=== PATIENT | male | born 1940 | race Caucasian/White ===

== ENCOUNTER 2016-10-10 16:01 | Inpatient (IN) | payer OTHER ==
[2016-10-10] MEDS ORDERED: SOLU-MEDROL IV ONE (17:28)
[2016-10-10] MEDS ORDERED: ZOFRAN IV PRN (17:28)
[2016-10-10] MEDS ORDERED: TYLENOL PO PRN (17:28)
[2016-10-10 18:13] LABS: ALLEN TEST YES; BE -7.3 mmoll (-3.0-3.0); BLOOD TYPE ARTERIAL; DRAW SITE R RADIAL; METHB 1.5 % (0.0-1.5); O2(CT) 16.3 mL/dL (15.0-23.0); PCO2(98.6) 35 mmHg (35-45); PO2(98.6) 72 mmHg (60-100); SAMPLE BLOOD; SAO2 97.1 % (95.0-100.0); THB 12.4 g/dL (11.5-17.4); pH(98.6) 7.32 (7.35-7.45)
[2016-10-10 18:16] LABS: MODALITY ROOM AIR
[2016-10-10] MEDS: NS 1,000 ML IV SCH (18:37)
[2016-10-10] MEDS: LOVENOX SUBQ SCH (18:38)
[2016-10-10] MEDS: LEVAQUIN 750 MG/D5W 150 ML IV SCH (18:38)
[2016-10-10] MEDS ORDERED: BROVANA NEB ONE (18:42)
[2016-10-10 18:46] LABS: MANUAL DIFF NEEDED? NO
[2016-10-10 18:49] LABS: BASO% 0.1 % (0.0-0.8); EOS# 0.06 X1000 (0.0-0.7); EOS% 0.6 % (0.0-10.0); HEMATOCRIT 36.2 % (42.0-52.0); HEMOGLOBIN 12.3 g/dL (14.0-18.0); IMM GRAN# 0.08 X1000 (0.0-0.04); IMM GRAN% 0.8 % (0.0-0.5); LYMPH# 2.24 X1000 (1.2-3.4); LYMPH% 21.2 % (20.5-51.1); MCH 30.9 PG (27-31); MONO# 1.05 X1000 (0.11-0.59); MPV 9.8 FL (7.4-10.4); NEUT% 67.3 % (42.2-75.2); PLT 283 X1000 (130-400); RBC 3.98 XMIL (4.7-6.1)
[2016-10-10 19:07] LABS: CALCIUM 9.1 mg/dL (8.8-10.2); POTASSIUM 4.1 mmol/L (3.5-5.1)
[2016-10-10] MEDS ORDERED: LANTUS SUBQ SCH (21:00)
[2016-10-10] MEDS: ASMANEX 220 MICROGM INHALER INH SCH (21:04)
[2016-10-10] MEDS: ATROVENT NEB INH SCH (21:05)
[2016-10-10] MEDS: BROVANA NEB INH SCH (21:06)
[2016-10-10] MEDS: ACCOLATE PO SCH (21:50)
[2016-10-10] MEDS: HUMULIN R SUBQ SCH (21:51)
[2016-10-10] MEDS: LIPITOR PO SCH (21:51)
[2016-10-10] MEDS: FLOMAX PO SCH (21:51)
[2016-10-10] MEDS: DESYREL PO PRN (21:51)
[2016-10-10] MEDS: XANAX PO SCH (21:51)
[2016-10-10] MEDS ORDERED: INSULIN PEN NEEDLES ONE (21:57)
[2016-10-11] MEDS ORDERED: SOLU-MEDROL IV SCH
[2016-10-11] MEDS: HUMULIN R SUBQ SCH ×5 (01:27→21:07)
[2016-10-11] MEDS: ATROVENT NEB INH SCH ×5 (03:00→21:08)
[2016-10-11] MEDS: PROTONIX PO SCH (06:16)
--- NOTE | 2016-10-11 07:45 | Diag Imaging Result Document ---
PROCEDURE NAME: CHEST-PORTABLE - 10/10/2016 SINGLE FRONTAL RADIOGRAPH OF THE CHEST: COMPARISON: 03/17/2016. FINDINGS: There is evidence of prior granulomatous disease, stable. There is mild chronic interstitial thickening at the lung bases that is stable. There is a prominent pericardial fat pad. The lungs are grossly clear, otherwise. No definite pleural fluid collection is identified. Cardiac silhouette is stable. IMPRESSION: Suggestion of mild chronic interstitial thickening at the lung bases. No definite acute pathology.
[2016-10-11] MEDS: BROVANA NEB INH SCH ×2 (07:50→20:12)
[2016-10-11] MEDS: ASMANEX 220 MICROGM INHALER INH SCH ×2 (07:51→20:11)
[2016-10-11] MEDS: ACCOLATE PO SCH ×2 (08:30→21:07)
[2016-10-11] MEDS: XANAX PO SCH ×2 (08:30→21:07)
[2016-10-11] MEDS: LANTUS SUBQ SCH ×2 (08:30→21:07)
[2016-10-11] MEDS: PLAVIX PO SCH (08:30)
[2016-10-11] MEDS: SOLU-MEDROL IV SCH ×3 (08:30→21:06)
[2016-10-11] MEDS: CELEXA PO SCH (08:30)
[2016-10-11] MEDS: HUMALOG SUBQ SCH ×3 (08:31→15:59)
[2016-10-11] MEDS: NS 1,000 ML IV SCH (08:31)
--- NOTE | 2016-10-11 09:00 | PROGRESS NOTE ---
DATE: 10/11/2016 SUBJECTIVE: Mr. Martell was admitted to [facility] with an acute COPD exacerbation with tracheobronchitis. His initial chest x-ray demonstrated chronic COPD type changes. No infiltrates or pleural effusions were noted. We initially placed him on supplemental O2, ipratropium nebulizer treatments, IV Solu-Medrol, and intravenous antibiotics including Levaquin. Clinically he reports that he is breathing more comfortably this morning. He still has wheezing throughout all lung killian but he is moving air better as compared to admission. He is maintaining O2 saturations of 92 to 96% on 2 L of O2. He continues with a cough productive of yellowish sputum as well as pleuritic chest pain. He does have a history of type 2 insulin- dependent diabetes mellitus. His blood sugars are fluctuating. He is on intravenous steroids. His sugars are ranging from 257-370. Cardiac enzymes are negative. OBJECTIVE: Vital signs: Temperature 98.2 degrees, pulse 81, respirations 24, BP 124/50. General: This is a chronically ill-appearing, 76-year-old gentleman in no significant distress. CV: Regular rate and rhythm. Lungs: He has end-expiratory wheezing with forced expiration in all lung killian. Aeration of the lungs has improved. Abdomen: Soft, nontender, with active bowel sounds. Extremities: Without edema. ASSESSMENT AND PLAN: 1. Acute chronic obstructive pulmonary disease exacerbation with tracheobronchitis. Clinically he is better this morning. We will continue supplemental O2, Brovana nebulized b.i.d., ipratropium nebulizer q.6 hours, taper the IV Solu-Medrol, and continue broad-spectrum antibiotics including Levaquin 750 mg daily. I will recheck a PA and lateral chest x-ray in the morning. 2. Type 2 insulin-dependent diabetes mellitus. Blood sugars are too high. I am going to increase the Lantus to 50 units subcutaneously daily. We will continue an 1800 calorie ADA diet, pattern sugars, and a Humulin R sliding scale.
--- NOTE | 2016-10-11 10:39 | HISTORY AND PHYSICAL ---
CHIEF COMPLAINT: Shortness of breath. HISTORY OF PRESENT ILLNESS: Mr. Zackery Martell is a 76-year-old, gentleman who is well known to me. 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 He presented to my office with a 2-week history of increasing shortness of breath, increasing work of breathing, cough productive of yellowish-green sputum, pleuritic chest pain worse with deep inspiration and paroxysms of cough, low-grade fever and chills. His chest x-ray showed chronic COPD-type changes but no obvious infiltrates or effusions. He denied any PND, orthopnea or increasing peripheral edema. PAST MEDICAL HISTORY: As above. PAST SURGICAL HISTORY: Appendectomy, umbilical hernia repair. Revision of bilateral ileo- ureters. ALLERGIES: No known drug allergies. MEDICATIONS: Xanax 0.25 mg b.i.d., atorvastatin 40 mg at bedtime, Celebrex 100 mg b.i.d., Celexa 20 mg daily. Clopidogrel 75 mg daily, Humalog 35 units subcu t.i.d. with meals, Lantus 40 units subcu daily, Symbicort 160/4.5, two puffs b.i.d., Brovana nebulizer b.i.d., ipratropium nebulized t.i.d., Flomax 0.4 mg daily. Toprol-XL 25 mg b.i.d. FAMILY HISTORY: Father had prostate cancer. Mother had diabetes. SOCIAL HISTORY: He is a former smoker. He does not consume alcoholic beverages. He lives with his spouse. He had a Pneumovax on 09/26/2008 and is vaccinated for life. REVIEW OF SYSTEMS: General: He denies any recent weight gain or weight loss. HEENT: He wears glasses. He is hard of hearing. CV: No chest pain, palpitations, or anginal equivalents. Pulmonary: See HPI. GI: No reflux, dysphagia, melena, hematochezia, change in bowel habits, or rectal bleeding. Endocrine: No polyuria, no polydipsia. No cold or heat intolerance. Skin: No easy bruisability. : No leakage of urine with coughing or laughing. Skin: No easy bruisability. Neurologic: He has decreased light touch in the distal extremities bilaterally. PHYSICAL EXAMINATION: GENERAL: This is a chronically ill-appearing, 76-year-old gentleman in mild distress secondary to shortness of breath. VITAL SIGNS: Blood pressure 97/49 sitting, 82/45 standing. Pulse 79. Height 68 inches, weight 200 pounds. BMI 30.4. O2 saturation 95%. HEENT: Fundi with arteriolar wall thickening. Pupils equal, round, reactive to light. Extraocular eye movements intact. TMs without bullae. NECK: Supple. No masses, JVD or bruits. CV: Regular rate and rhythm. LUNGS: Diffuse end-expiratory wheezing with forced expiration. There is poor air movement. ABDOMEN: Soft, nontender, with active bowel sounds. No hepatosplenomegaly. No abdominal bruits. EXTREMITIES: Without edema. SKIN: No palpable purpura. EXTREMITIES: Without edema. AND RECTAL EXAMS: Deferred. NEURO: He has decreased light touch in the distal extremities bilaterally. ASSESSMENT AND PLAN: 1. Acute chronic obstructive pulmonary disease exacerbation with tracheobronchitis. I am going to admit him to [facility]. We will begin supplemental O2, Brovana nebulized b.i.d., ipratropium nebulized t.i.d., Levaquin 750 mg IV daily and IV Solu-Medrol. 2. Hypertension. His blood pressure is a little bit low. I am going to hold the Toprol and cautiously give him fluids. 3. Type 2 insulin-dependent diabetes mellitus. We will place him on patterned sugars, Humulin R sliding scale, and continue his regular dosage of Lantus and Humalog. I suspect that we may have to adjust the Lantus because he is on IV steroids. Given his clinical presentation and comorbid condition, I anticipate that he will be in the hospital for at least [address] I will therefore place him in inpatient status. Given the increasing shortness of breath, increased work of breathing, I believe the hospitalization is necessary. We will begin Lovenox 40 mg subcutaneously daily as DVT prophylaxis.
[2016-10-11] MEDS: LEVAQUIN 750 MG/D5W 150 ML IV SCH (16:43)
[2016-10-11] MEDS: LOVENOX SUBQ SCH (16:43)
[2016-10-11] MEDS: FLOMAX PO SCH (21:06)
[2016-10-11] MEDS: LIPITOR PO SCH (21:06)
[2016-10-11] MEDS: DESYREL PO PRN (21:07)
[2016-10-12] MEDS: ATROVENT NEB INH SCH ×4 (03:06→19:49)
[2016-10-12] MEDS: SOLU-MEDROL IV SCH ×3 (03:08→14:30)
[2016-10-12] MEDS: NS 1,000 ML IV SCH ×2 (03:09→12:05)
[2016-10-12] MEDS: HUMULIN R SUBQ SCH ×5 (06:40→20:19)
[2016-10-12] MEDS: PROTONIX PO SCH (06:40)
[2016-10-12] MEDS: HUMALOG SUBQ SCH ×3 (08:05→17:16)
[2016-10-12] MEDS: PLAVIX PO SCH (08:06)
[2016-10-12] MEDS: XANAX PO SCH ×2 (08:06→20:19)
[2016-10-12] MEDS: CELEXA PO SCH (08:06)
[2016-10-12] MEDS: ACCOLATE PO SCH ×2 (08:06→20:19)
[2016-10-12] MEDS: BROVANA NEB INH SCH ×2 (11:30→19:49)
[2016-10-12] MEDS: ASMANEX 220 MICROGM INHALER INH SCH ×2 (11:32→19:49)
--- NOTE | 2016-10-12 13:14 | Diag Imaging Result Document ---
PROCEDURE NAME: CHEST-2 VIEWS - 10/12/2016 TWO VIEWS OF THE CHEST: FINDINGS: There is emphysematous change in the upper lung zones. There is a prominent fat pad over the left heart border. There are calcified nodes in the subcarina. There is atelectasis in the right costophrenic angle region, which was not present on the previous study of 10/10/2016. IMPRESSION: 1. Left basilar atelectasis. 2. COPD.
[2016-10-12] MEDS: LEVAQUIN 750 MG/D5W 150 ML IV SCH (17:16)
[2016-10-12] MEDS: LOVENOX SUBQ SCH (17:17)
[2016-10-12] MEDS: LANTUS SUBQ SCH (20:19)
[2016-10-12] MEDS: LIPITOR PO SCH (20:19)
[2016-10-12] MEDS: FLOMAX PO SCH (20:19)
[2016-10-12] MEDS: DESYREL PO PRN (20:19)
[2016-10-13] MEDS: SOLU-MEDROL IV SCH ×3 (02:50→15:26)
[2016-10-13] MEDS: NS 1,000 ML IV SCH (03:12)
[2016-10-13] MEDS: ATROVENT NEB INH SCH ×4 (03:30→20:10)
[2016-10-13] MEDS: HUMULIN R SUBQ SCH ×4 (06:40→21:35)
[2016-10-13] MEDS: PROTONIX PO SCH (06:40)
[2016-10-13] MEDS: ACCOLATE PO SCH ×2 (08:10→20:01)
[2016-10-13] MEDS: CELEXA PO SCH (08:10)
[2016-10-13] MEDS: HUMALOG SUBQ SCH ×3 (08:10→17:18)
[2016-10-13] MEDS: PLAVIX PO SCH (08:10)
[2016-10-13] MEDS: XANAX PO SCH ×2 (08:10→20:00)
[2016-10-13 09:00] LABS: HEMATOCRIT 33.2 % (42.0-52.0); HEMOGLOBIN 10.9 g/dL (14.0-18.0); MCH 31.1 PG (27-31); MCHC 32.8 g/dL (33-37); MCV 94.6 FL (81-99); MPV 10.2 FL (7.4-10.4); RBC 3.51 XMIL (4.7-6.1)
[2016-10-13] MEDS: ASMANEX 220 MICROGM INHALER INH SCH ×2 (09:19→19:50)
[2016-10-13] MEDS: BROVANA NEB INH SCH ×2 (09:19→20:10)
[2016-10-13 09:41] LABS: CALCIUM 9.1 mg/dL (8.8-10.2); POTASSIUM 5.1 mmol/L (3.5-5.1)
--- NOTE | 2016-10-13 09:59 | PROGRESS NOTE ---
DATE: 10/13/2016 SUBJECTIVE: Mr. Martell was admitted to [facility] with an acute COPD exacerbation. His chest x-ray demonstrated diffuse emphysematous changes. No infiltrates or pleural effusions were noted. He continues to improve clinically. He is maintaining O2 saturations of 97-98% on 2 L of O2. He continues with a persistent nonproductive cough but has no further pleuritic chest pain. He denies any PND, orthopnea, or increasing peripheral edema. Blood sugars are trending down. His most recent blood sugars were 146 and 198. We have been tapering the steroids. PHYSICAL EXAMINATION: Vital Signs: Temperature 98.1 degrees, pulse 88, respirations 20, BP 132/60. CV: Regular rate and rhythm. Lungs: Distant breath sounds with increased period of expiration. Abdomen: Soft and nontender, with active bowel sounds. ASSESSMENT AND PLAN: 1. Acute chronic obstructive pulmonary disease exacerbation. Clinically, he continues to improve. I am going to check a room air oxygen saturation to see if he will require home oxygen. We will continue Brovana nebulized twice a day, ipratropium nebulized three times a day, and I will switch him to oral steroids. We will check a CBC and a BMP today. 2. Type 2 insulin-dependent diabetes mellitus. We will continue an 1800 calorie, [employer] diet, pattern sugars, Humulin R sliding scale, Lantus and Humalog.
--- NOTE | 2016-10-13 11:28 | Diag Imaging Result Document ---
PROCEDURE NAME: CHEST-2 VIEWS - 10/13/2016 TWO VIEWS OF THE CHEST: FINDINGS: There is a prominent epicardial fat pad on the left. There may be COPD. The appearance of the chest has not changed significantly since 10/12/2016. IMPRESSION: Stable chest.
[2016-10-13] MEDS: LEVAQUIN 750 MG/D5W 150 ML IV SCH (17:18)
[2016-10-13] MEDS: LOVENOX SUBQ SCH (17:19)
[2016-10-13] MEDS ORDERED: INSULIN PEN NEEDLES ONE (19:57)
[2016-10-13] MEDS: LIPITOR PO SCH (20:00)
[2016-10-13] MEDS: FLOMAX PO SCH (20:00)
[2016-10-13] MEDS: LANTUS SUBQ SCH (20:00)
[2016-10-13] MEDS: DESYREL PO PRN (20:03)
[2016-10-14] MEDS: SOLU-MEDROL IV SCH (01:15)
[2016-10-14] MEDS: ATROVENT NEB INH SCH (03:05)
[2016-10-14] MEDS: HUMULIN R SUBQ SCH (05:59)
[2016-10-14] MEDS: PROTONIX PO SCH (06:00)
[2016-10-14 07:30] VITALS: BP 109/53
[2016-10-14] MEDS: PLAVIX PO SCH (08:22)
[2016-10-14] MEDS: HUMALOG SUBQ SCH (08:22)
[2016-10-14] MEDS: ACCOLATE PO SCH (08:22)
[2016-10-14] MEDS: CELEXA PO SCH (08:22)
[2016-10-14] MEDS: XANAX PO SCH (08:22)
[2016-10-14] MEDS ORDERED: SYMBICORT 160/4.5 MICROGM INHALER INH SCH (19:30)
--- NOTE | 2016-11-10 15:12 | DISCHARGE SUMMARY ---
ADMISSION DATE: 10/10/2016 DISCHARGE DATE: 10/14/2016 DISCHARGE DIAGNOSES: 1. Acute chronic obstructive pulmonary disease exacerbation with tracheal bronchitis. 2. Type 2 insulin dependent diabetes mellitus. 3. Ischemic heart disease. 4. Chronic congestive heart failure secondary to systolic dysfunction with an EF of 45%. 5. Gastroesophageal reflux disease. 6. Mixed hyperlipidemia. 7. Depression. DISCHARGE INSTRUCTIONS: 1. Return to clinic in 1 week to see me Dr. Vamsi Mccall in anticipation of transition of care visit. 2. Activity as tolerated. 3. 1800 calorie ADA diet. MEDICATIONS: Brovana nebulized b.i.d. Symbicort 160/4.5 2 puffs b.i.d., Lantus 50 units subcutaneously daily. Ipratropium 0.5 mg nebulized q.6 hours. Trazodone 50 mg q.8 hours p.r.n. insomnia. Atorvastatin 40 mg at bedtime. Alprazolam 0.5 mg b.i.d., Celexa 20 mg daily, Plavix 75 mg daily. Humalog 25 units plus sliding scale t.i.d. with meals. Pantoprazole 40 mg daily. Flomax 0.4 mg daily. Accolate 20 mg b.i.d. HISTORY: Mr. Zackery Martell was admitted to [facility] with an acute chronic obstructive pulmonary disease exacerbation complicated by tracheobronchitis. His initial chest x- ray demonstrated chronic COPD type changes without obvious infiltrates. The patient was treated with supplemental O2. IV Solu-Medrol broad-spectrum antibiotics and we added Brovana to his regimen of ipratropium. We also added Symbicort 160/4.5 2 puffs b.i.d. as part of his maintenance regimen. Over the course of the next several days, he made slow but steady progress. We were gradually able to wean him off O2 and wean him off IV steroids without regression of his symptoms. He will continue Brovana nebulized b.i.d., ipratropium nebulized q.6 hours and Symbicort. He does have a longstanding history of type 2 insulin-dependent diabetes mellitus while on steroids. Sugars did fluctuate. We increased the Lantus to 50 units subcutaneously daily with stabilization of his sugars. Having reached maximum hospital benefit, the patient will be discharged in stable condition.
== END 2016-10-14 10:40 | disposition home or self-care (01) | DRG 191 ==
LOC: P.DIRADM 16:01 → DIRADM 16:45 → 3S 17:15
PROVIDERS: ADMIT Internal Medicine; ATTEND Internal Medicine
DX: J44.1 Chronic obstructive pulmonary disease with (acute) exacerbation (principal); I50.22 Chronic systolic (congestive) heart failure; I11.0 Hypertensive heart disease with heart failure; E11.42 Type 2 diabetes mellitus with diabetic polyneuropathy; I25.9 Chronic ischemic heart disease, unspecified; E78.2 Mixed hyperlipidemia; K21.9 Gastro-esophageal reflux disease without esophagitis; M19.90 Unspecified osteoarthritis, unspecified site; F32.9 Major depressive disorder, single episode, unspecified; Z79.899 Other long term (current) drug therapy; Z79.1 Long term (current) use of non-steroidal anti-inflammatories (NSAID); Z79.4 Long term (current) use of insulin; Z87.891 Personal history of nicotine dependence; Z83.3 Family history of diabetes mellitus; Z80.42 Family history of malignant neoplasm of prostate; Z79.02 Long term (current) use of antithrombotics/antiplatelets
CPT/HCPCS: 71010; 71020; 80048; 82550; 82805; 82948; 84484; 85025; 85027; 94640; 94761; J1650; J1815; J2920; J2930; J7030

== ENCOUNTER 2019-11-12 01:32 | Inpatient (IN) ==
[2019-11-12] MEDS ORDERED: DUONEB (A & A) INH ONE (01:43)
[2019-11-12] MEDS ORDERED: ROCEPHIN 1 GM in NS 50 ML IV ONE ×2 (01:43→04:19)
[2019-11-12] MEDS ORDERED: NS 1,000 ML IV ONE (01:43)
[2019-11-12 02:16] LABS: ALLEN TEST YES; BE -8.8 mmoll (-3.0-3.0); BLOOD TYPE ARTERIAL; HCO3-(ACT) 18.1 mmoll (20.0-26.0); METHB 0.5 % (0.0-1.5); O2(CT) 12.5 mL/dL (15.0-23.0); O2HB 96.3 % (95.0-99.0); PCO2(98.6) 33 mmHg (35-45); PO2(98.6) 99 mmHg (60-100); SAMPLE BLOOD; SAO2 98.9 % (95.0-100.0); THB 9.1 g/dL (11.5-17.4); pH(98.6) 7.31 (7.35-7.45)
[2019-11-12 02:17] LABS: MODALITY CANNULA
[2019-11-12 03:19] LABS: BASO# 0.01 X1000 (0.0-0.2); BASO% 0.1 % (0.0-0.8); EOS# 0.07 X1000 (0.0-0.7); EOS% 0.7 % (0.0-10.0); HEMATOCRIT 30.2 % (42.0-52.0); HEMOGLOBIN 9.6 g/dL (14.0-18.0); IMM GRAN# 0.05 X1000 (0.0-0.04); IMM GRAN% 0.5 % (0.0-0.5); MCH 30.8 PG (27-31); MCHC 31.8 g/dL (33-37); MCV 96.8 FL (81-99); MPV 10.4 FL (7.4-10.4); NEUT# 6.26 X1000 (1.4-6.5); NEUT% 62.7 % (42.2-75.2); PLT 214 X1000 (130-400); RBC 3.12 XMIL (4.7-6.1); RDW 17.3 % (11.5-14.5); WBC 9.99 X1000 (4.8-10.8)
[2019-11-12 03:40] LABS: ALB/GLOB RATIO 1.3; ALBUMIN 3.6 g/dL (3.5-5.0); CALCIUM 9.5 mg/dL (8.8-10.2); CREATININE 2.1 mg/dL (0.7-1.2); POTASSIUM 4.6 mmol/L (3.5-5.1); TOTAL BILIRUBIN 0.71 mg/dL (0.20-1.00); TOTAL PROTEIN 6.3 g/dL (6.3-8.3)
[2019-11-12 04:07] LABS: URINE SOURCE CLEAN CATCH
[2019-11-12 04:09] LABS: BILIRUBIN URINE NEGATIVE (NEGATIVE); BLOOD URINE TRACE (NEGATIVE); COLOR YELLOW; GLUCOSE URINE NEGATIVE (NEGATIVE); KETONE URINE NEGATIVE (NEGATIVE); LEUKOCYTES URINE SMALL (NEGATIVE); NITRITE URINE NEGATIVE (NEGATIVE); PH URINE 6.5; PROTEIN URINE 30 mg/dL (NEGATIVE); SP GRAVITY URINE 1.014; TURBIDITY URINE CLEAR (CLEAR); UR EPITHELIAL CELLS <10 /HPF (<10); URINE BACTERIA NEGATIVE /HPF; URINE RBC <10 /HPF (<10); URINE WBC 20-40 /HPF (<10); UROBILINOGEN URINE NORMAL (NORMAL)
--- NOTE | 2019-11-12 05:08 | PROVIDER DOCUMENTATION ---
This chart was entered by Jocelyn Castorena Scribe, acting as scribe for Josh Castillo MD. HPI-General Adult - General Chief Complaint: Weakness Stated Complaint: SICK Time Seen by Provider: 11/12/19 01:39 Source: patient, EMS Allergies/Adverse Reactions: Patient Allergies Allergy/AdvReac Type Severity Reaction Status Date / Time No Known Allergies Allergy Verified 11/12/19 01:53 Home Medications: Home Medication List Medication Instructions Recorded Confirmed Last Taken Type ATORVAstatin [Lipitor] 40 mg PO QHS 09/12/12 11/12/19 11/11/19 History Citalopram [Celexa] 40 mg PO DAILY 09/12/12 11/12/19 11/11/19 History Insulin Lispro [Humalog] 25 unit SUBQ TID 09/12/12 11/12/19 11/11/19 History Tamsulosin [Flomax] 0.4 mg PO QHS 09/12/12 11/12/19 11/11/19 History Alprazolam [Xanax] 0.5 mg PO BID 06/19/15 11/12/19 11/11/19 History Budesonide/Formoterol Inhaler 2 puff INH RTBID #1 inhaler 07/21/17 11/12/19 11/11/19 Rx [Symbicort 160/4.5 Microgm Inhaler] Amlodipine Besylate 10 mg PO DAILY 01/23/18 11/12/19 11/11/19 History Fexofenadine [Lacey] 1 tab PO DAILY 11/08/19 11/12/19 11/11/19 History Insulin Glargine,Hum.rec.anlog 50 unit SQ QHS 11/08/19 11/12/19 11/11/19 History [Lantus Solostar] Montelukast [Singulair] 1 tab PO DAILY 11/08/19 11/12/19 11/11/19 History - History of Present Illness -Gen Adult Nature of Presenting Problems: 79 yowm presents w/ems to er w/cc prod cough w/hemoptysis, wheezing, fever, slight confusion starting today. hypotension 70/49 enroute. breathing tx enroute. pt was seen in er last monday for fall, has left sided pain. no al lergies. hx of [place] w/stents, copd. Location of Pain/Injury: reports: other (left sided pain) Pain Radiation: reports: no radiation Severity: reports: mild Onset/Duration: reports: other (today) Timing: reports: still present Context/Activities at Onset: reports: none Modifying Factors: improves with: nothing Associated Symptoms: reports: cough (prod w/blood), fever/chills, other (wheeze, confusion) Recently seen or treated by another doctor?: Yes Review of Systems - Adult - REVIEW OF SYSTEMS - ADULT Constitutional: reports: see HPI, fever, other (ams, confusion). denies: chills, night sweats Eyes: reports: no symptoms reported Ears, Nose, Mouth & Throat: reports: no symptoms reported Cardiovascular: reports: no symptoms reported Respiratory: reports: see HPI, cough, excessive sputum production, hemoptysis (family rpt), wheezing. denies: dyspnea on exertion, pleurisy Gastrointestinal: reports: no symptoms reported Genitourinary: reports: no symptoms reported Musculoskeletal: reports: see HPI, other (left sided pain) Integumentary: reports: no symptoms reported Neurological: reports: no symptoms reported Psychiatric: reports: no symptoms reported Endocrine: reports: no symptoms reported Hematologic/Lymphatic: reports: no symptoms reported Allergic/Immunologic: reports: no symptoms reported All Other Systems: Reviewed and Negative Past History - Adult - PAST MEDICAL HISTORY-ADULT Review of Records: reports: Nursing Assessment Review, Medications Reviewed, Social history reviewed & non-contributory. Major Childhood Illnesses: reports: denies history Cardiovascular: reports: CHF, HTN, hyperlipidemia, [place] Respiratory: reports: asthma, COPD Gastrointestinal: reports: GERD Obstetrical/Gynecological: reports: denies history Genitourinary: reports: prostate cancer Musculoskeletal: reports: denies history Neurological: reports: denies history Psychiatric: reports: anxiety, depression Endocrine/Immune: reports: Diabetes Other Conditions: reports: cataract/glaucoma - PRIOR SURGERIES/PROCEDURES Surgical/Procedure History: reports: recent surgery (right total knee), appendectomy, cholecystectomy, hernia repair, orthopedic (extremity) (bilateral carpal tunnel), joint replacement, other (prostate-TURP) - IMMUNIZATION STATUS Childhood Immunizations: See Nurse Assessment Flu Vaccine: See Nurse Assessment - FAMILY HISTORY Family History: reviewed, not pertinent - SOCIAL HISTORY Smoking: other (former smoker) Substance Use: none/never Physical Exam-General - PHYSICAL EXAM-ADULT Initial Vital Signs Reviewed: Yes - CONSTITUTIONAL General Appearance: alert, mild distress, obese, slow to respond. negative: cachetic, anxious, combative - EYES Eyes: PERRL/EOMI, other (pt has L black eye). negative: photophobia, subconjunctival hemorrhage, sunken eyes - HEAD, EARS, NOSE, MOUTH & THROAT HENMT: normocephalic/atraumatic, moist mucous membranes - NECK Neck: non-tender, full range of motion, supple, normal inspection - RESPIRATORY Respiratory: lungs clear, normal breath sounds, no pleuratic chest pain, no respiratory distress, no accessory muscle use, other (tender left lateral ribs). negative: chest non-tender, respiratory distress, decreased breath sounds, accessory muscle use, crackles, wheezing, crepitus - CARDIOVASCULAR Cardiovascular: normal peripheral pulses, regular rate, rhythm - GASTROINTESTINAL (ABDOMEN) Abdominal Exam: normal bowel sounds, non tender, soft - MUSCULOSKELETAL Back Exam: normal inspection Extremity: normal range of motion, no pedal edema, no calf tenderness, normal capillary refill, pelvis stable, tenderness (left lateral wrist tenderness w/bruising). negative: non-tender, normal inspection, deformity, erythema, slow capillary refill - SKIN Integumentary: normal color, normal turgor, warm/dry, abrasion(s) (small left knee), laceration(s) (above left eyebrow), swelling (left eye w/bruising). negative: diaphoresis, erythema, rash - NEUROLOGIC Neurologic: [employer] II-XII nml as tested, grossly normal, no motor/sensory deficits - PSYCHIATRIC Psych/Mental Status: normal mood/affect, normal thought content, normal thought process, oriented x 3 Progress - PLAN OF CARE/RESULTS Result Diagrams: 11/12/19 02:50 11/12/19 02:50 - EKG 1 Time of EKG reading by physician:: 02:31 EKG Read and Signed by:: Josh Castillo EKG Interpretation (*Must complete 3 of following elements*): Abnormal Rate: 86 Rhythm: nsr [place]: normal QRS: RBB [place] Interval: normal ST Wave: non-specific ST changes (nsr,rbbb) - CONSULTS/PCP/HOSPITALIST Notification #1 *Consult/PCP/Hospitalist*: DR PADILLA Time Discussed: 04:24 Consult Disposition: Admit Departure - Departure Date of Disposition Decision: 11/12/19 Time of Disposition Decision: 04:24 DIAGNOSIS: Confusion, Renal insufficiency, Weakness, UTI (urinary tract infection) Dyspnea Qualifiers: Dyspnea type: shortness of breath Qualified Code(s): R06.02 - Shortness of breath Hypotension Qualifiers: Hypotension type: unspecified hypotension type Qualified Code(s): I95.9 - Hypotension, unspecified LLL pneumonia Qualifiers: Pneumonia type: due to unspecified organism Qualified Code(s): J18.1 - Lobar pneumonia, unspecified organism Fluid overload Qualifiers: Hypervolemia type: unspecified Qualified Code(s): E87.70 - Fluid overload, unspecified Disposition: ADMITTED INPATIENT 09 Certified Medical Emergency: Emergent Condition: Fair Referrals and Follow-Ups: Katheryn cMcall MD [Primary Care Provider] - - Critical Care Note This patient required my direct & personal management of CC.: No Attestation - Physician/ YAMILEX Attestation Patient care was provided by Advanced Practice Provider:: No The physician spent face to face time with patient:: Yes Advanced Practice Provider documentation review:: Supervising physician onsite and consulted in the evaluation and care of this patient. The physician did have a face to face encounter with the patient. This chart was documented by the indicated scribe, (Jocelyn Castorena, Claudia) and accurately reflects the services I performed and decisions made by me, Josh Castillo MD, as attested by the provider's signature.
--- NOTE | 2019-11-12 05:44 | EKG Report ---
Test Performed on : 11/12/2019 02:24:43 AM Test Reason : hypotension Blood Pressure : / mmHG Vent. Rate : 086 BPM Atrial Rate : 086 BPM P-R Int : 172 ms QRS Dur : 134 ms QT Int : 408 ms P-R-T Axes : 052 063 052 degrees QTc Int : 488 ms Normal sinus rhythm. Right bundle branch block Abnormal ECG When compared with ECG of 08-NOV-2019 16:30, (Unconfirmed) premature ventricular complexes. are no longer present Nonspecific T wave abnormality no longer evident in Lateral leads Unconfirmed Result
--- NOTE | 2019-11-12 05:47 | Diag Imaging Result Doc PS360 ---
EXAM: CHEST-PORTABLE HISTORY: hypoxia,cough TECHNIQUE: Single view COMPARISON: 07/20/2017 FINDINGS: The lungs are well expanded. No cardiomegaly. There are increased interstitial markings in the left base. These are similar to the prior exam and consistent with fibrosis. No pleural effusions identified. Multiple old rib fractures and old right clavicular fracture. IMPRESSION: No pneumonia Electronically signed by Agusto Warner 11/12/2019 5:45 AM
[2019-11-12 05:50] LABS: HEMOGLOBIN A1C 7.6 % (4.8-6.0)
--- NOTE | 2019-11-12 06:27 | Diag Imaging Result Doc PS360 ---
EXAM: CT HEAD W/O CONTRAST 11/12/2019 HISTORY: head injury, confusion TECHNIQUE: This exam was performed using automated exposure control, adjustment of mA or kV according to patient size, and/or use of iterative reconstruction technique. COMMENT: There is no evidence of mass effect, bleed, or abnormal extra-axial fluid collection. There are some calcifications in the vertebral and internal carotid arteries. Compared to the previous examination of 11/08/2019 the appearance the brain has not changed significantly. There is a mucous retention cyst with some apparent calcification in the left maxillary sinus as well as mucosal thickening indicating chronic sinusitis. The calvarium is intact. IMPRESSION: No evidence of acute intracranial disease. Chronic left maxillary sinusitis. Electronically signed by Fabricio Trejo 11/12/2019 6:25 AM
--- NOTE | 2019-11-12 06:49 | HISTORY AND PHYSICAL ---
CHIEF COMPLAINT: Dizziness, fall, weakness. PRIMARY CARE PHYSICIAN: Dr. Vamsi Mccall. HISTORY OF PRESENT ILLNESS: Mr. Martell is a pleasant 79-year-old male. 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 He comes into the emergency room tonight after having a productive cough with hemoptysis, wheezing, low grade fever, and slight confusion. He had a fall last Monday, I believe it was. He still has a left eye contusion with stitches. Chest x-ray was obtained in the ER which showed some blunting on the left side. Urine is also leuko esterase positive with WBCs. The patient will be admitted to the medical floor for further evaluation and treatment. PAST MEDICAL HISTORY: See HPI. PREVIOUS SURGICAL HISTORY: Appendectomy, umbilical hernia repair, revision of bilateral ileo ureters. ALLERGIES: No known drug allergies. FAMILY HISTORY: Mother had diabetes. Father had prostate cancer. SOCIAL HISTORY: He is a former smoker. No alcohol. No illicit drugs. Lives with his who is present at the bedside. HOME MEDICATIONS: 1. Xanax 0.5 mg p.o. b.i.d. 2. Amlodipine 10 mg p.o. daily. 3. Atorvastatin 40 mg p.o. at bedtime. 4. Symbicort 160/4.5. 5. Celexa 40 mg p.o. daily. 6. Lacey 1 tablet p.o. daily. 7. Lantus 50 units subcu at bedtime. 8. Humalog 25 mg subcu t.i.d. 9. Singulair 10 mg p.o. daily. 10.Flomax 0.4 mg p.o. at bedtime. REVIEW OF SYSTEMS: A 14 point review of systems conducted with the patient and pertinent positives listed above in the HPI. All other systems reviewed and found to be negative. He had complaint of diarrhea for the last couple of days. PHYSICAL EXAMINATION: VITAL SIGNS: Temperature 99.4 degrees, pulse 98, respirations 18, blood pressure 161/83, oxygen saturation 98% on 2 liters nasal cannula. GENERAL: José Miguel 79-year-old male lying in the ER stretcher. He is alert and oriented x3. is at the bedside. Very pleasant. HEENT: Head is atraumatic, normocephalic. Ecchymoses to the left eye and orbit related to a contusion. Above his brow, he has a laceration that has been sutured closed, healing well. Pupils equal, round and reactive to light. Extraocular eye movements intact. Sclerae anicteric. Conjunctivae are mildly pale. Oral mucosa is dry. NECK: Supple. No JVD. No thyromegaly. Trachea is midline. No cervical lymphadenopathy. CARDIAC: S1, S2 appreciated. No murmurs, gallops, rubs. LUNGS: Crepitations noted on the right. Diffuse expiratory wheezing. Decreased bilaterally. Symmetrical rise and fall of respirations. ABDOMEN: Protuberant. Soft, nondistended, nontender. Bowel sounds present in all 4 quadrants. Normoactive. No pulsatile mass. No organomegaly. EXTREMITIES: No cyanosis, clubbing or edema. 2+ pedal pulses. GENITOURINARY: No bladder distention. Patient voids. Otherwise deferred. NEUROLOGICAL: Alert and oriented x3. Cranial nerves 2-12 grossly intact. DIAGNOSTIC DATA: Chest x-ray: Left lower lobe infiltrate. LABORATORY DATA: WBC 9.99, hemoglobin 9.6, hematocrit 30, platelet count 214. ABG, pH 7.31, PCO2 33, PO2 99, bicarb 18.1. Sodium 135, potassium 4.6, chloride 103, carbon dioxide 17, BUN 49, creatinine 2.1, glucose 213. Urine leuko esterase positive 20-40 WBCs. ASSESSMENT AND PLAN: 1. COPD with exacerbation. 2. Probable left lower lobe pneumonia. 3. Early urinary tract infection. 4. Volume depletion secondary to diarrheal illness. 5. Weakness and dizziness secondary to volume depletion. 6. Acute kidney injury on chronic kidney disease stage 3. 7. Diabetes mellitus type 2 now insulin dependent with hyperglycemia. PLAN: Admit patient to the medical floor. Start patient on doxycycline and Rocephin. Continue his home medications. We will add DuoNeb q.6 hours. We will not give steroids at this time as the patient is diabetic. Continue home insulin. Check fingerstick blood sugars q.a.c. and at bedtime. We will defer to Dr. Mccall, his primary care provider addition of sliding scale or other insulin if necessary. Check a hemoglobin A1c. Recheck chemistry panel. Give 500 mL of normal saline at 60 mL an hour to replace volume loss from diarrheal illness. I believe he may have already received a bolus in the emergency room. We will be careful to monitor patient's fluid volume status with strict I's and O's as he does have a history of systolic congestive heart failure. Further recommendations based on patient's clinical course. Dictated by DEIRDRE Dahl for Todd Noland MD cc: DEIRDRE Dahl MD M. Neel Roberts, MD
[2019-11-12] MEDS ORDERED: ZOFRAN IV PRN (07:19)
[2019-11-12] MEDS ORDERED: NS 1,000 ML IV SCH ×2 (07:19→18:30)
[2019-11-12] MEDS ORDERED: NORVASC PO SCH (09:00)
[2019-11-12] MEDS: XANAX PO SCH ×2 (09:14→20:19)
[2019-11-12] MEDS: ALLEGRA PO SCH (09:14)
[2019-11-12] MEDS: CELEXA PO SCH (09:14)
[2019-11-12] MEDS: DOXYCYCLINE 100 MG in NS 250 ML IV SCH ×2 (09:14→11:11)
[2019-11-12] MEDS: SINGULAIR PO SCH (09:14)
[2019-11-12] MEDS ORDERED: NS 500 ML IV SCH (09:15)
[2019-11-12] MEDS: HUMALOG SUBQ SCH ×3 (09:58→17:58)
[2019-11-12] MEDS: TYLENOL PO PRN (12:01)
[2019-11-12] MEDS: DUONEB (A & A) INH SCH ×3 (12:03→23:16)
[2019-11-12] MEDS: SYMBICORT 160/4.5 MICROGM INHALER INH SCH ×2 (12:03→23:16)
[2019-11-12] MEDS ORDERED: LEVAQUIN 500 MG/D5W 500 MG/100 ML IVPB IV SCH (18:15)
--- NOTE | 2019-11-12 18:44 | PROGRESS NOTE ---
DATE: 11/12/2019 SUBJECTIVE: Mr. Martell was admitted to [facility] with an acute COPD exacerbation complicated by tracheobronchitis. Chest x-ray demonstrated pulmonary fibrosis, but no evidence of an infiltrate. He continues with mild shortness of breath, cough productive of blood-tinged greenish sputum, pleuritic chest pain worse with fits of coughing, and generalized malaise. He denies any nausea, vomiting, or diarrhea. He does have a history of chronic renal insufficiency. His baseline BUN and creatinine run from 1.2 to 1.4. On admission his creatinine was 2.1. He is maintaining good urine output. Blood sugars are fluctuating in the range of 250 to 317. OBJECTIVE: Vital signs: He is afebrile. BP 148/44 sitting, 135/38 standing. CV: Regular rate and rhythm. Lungs: Diffuse end-expiratory wheezing with forced expiration. Abdomen: Soft, nontender, with active bowel sounds. Extremities: Trace ankle edema. ASSESSMENT AND PLAN: 1. Metabolic encephalopathy. Mr. Martell seems very confused and disoriented. He knows his name and that he is at [facility]. He thought today was Monday. I suspect that the encephalopathy is multifactorial in etiology. He has acute on chronic renal failure. He has tracheobronchitis from an acute chronic obstructive pulmonary disease exacerbation. I will change the antibiotics to a combination of Rocephin and Levaquin. We will continue DuoNeb nebulizer treatments. I suspect that as the infection and renal function improve that he will return to his baseline neurologically. 2. Acute on chronic renal failure. I will give him a liter of normal saline. Recheck a BMP in the morning. 3. Type 2 insulin-dependent diabetes mellitus complicated by polyneuropathy. We will continue Humalog 25 units with meals and increase the Lantus to 60 units daily. We will continue pattern sugars and a Humulin R sliding scale. 4. Acute chronic obstructive pulmonary disease exacerbation complicated by tracheobronchitis. We will continue DuoNeb nebulizer treatments as well as broad-spectrum antibiotics including Rocephin and Levaquin. At this point in time, there does not appear to be any evidence of sepsis or systemic inflammatory response syndrome. cc: Av Mccall MD
[2019-11-12] MEDS: LEVAQUIN 250 MG in NS 50 ML IV SCH (20:18)
[2019-11-12] MEDS: LANTUS INSULIN SUBQ SCH (20:18)
[2019-11-12] MEDS: LIPITOR PO SCH (20:19)
[2019-11-12] MEDS: FLOMAX PO SCH (20:19)
[2019-11-12] MEDS ORDERED: LANTUS INSULIN SUBQ SCH (21:00)
[2019-11-13] MEDS: ROCEPHIN 1 GM in NS 50 ML IV SCH (01:02)
[2019-11-13] MEDS: DUONEB (A & A) INH SCH ×4 (04:06→22:11)
[2019-11-13] MEDS ORDERED: VANCOMYCIN 1 GM/NS 1 GM/250 ML IVPB IV ONE (07:41)
--- NOTE | 2019-11-13 08:05 | PROGRESS NOTE ---
DATE: 11/13/2019 SUBJECTIVE: Mr. Martell was admitted to [facility] with a metabolic encephalopathy. This morning he seems much more alert and interactive. He is oriented to name and place. He is able to identify family members. He seems much more at his baseline. His orthostasis has resolved with fluids. We had also reduce the dosage of amlodipine. Systolic blood pressures are ranging from 130 to 145, whereas his diastolic pressures are in the 40s and 50s. The dizziness has improved significantly. He continues with mild shortness of breath, pleuritic chest pain with deep inspiration and paroxysms of cough. He is still wheezing. Blood sugars are consistently in the 200s. OBJECTIVE: Vital Signs: Temperature 97.8 degrees, pulse 85, respirations 18, and BP 130/46. CV: Regular rate and rhythm. Lungs: Diffuse end expiratory wheezing with forced expiration. Abdomen: Soft and nontender with active bowel sounds. No hepatosplenomegaly. No abdominal bruits. ASSESSMENT AND PLAN: 1. Metabolic encephalopathy secondary to acute chronic obstructive pulmonary disease exacerbation with tracheobronchitis. His initial chest x-ray demonstrated pulmonary fibrosis, but no obvious infiltrates. We will continue the Levaquin 250 mg IV daily dosed for renal function, and I will bolus him with vancomycin 1 g IV given the positive blood culture with gram- positive cocci. We will add low-dose methylprednisolone and continue DuoNeb nebulizer treatments. 2. Orthostasis. I suspect that his orthostasis was due to volume depletion as well as blood pressure medicines. We gave him a L of fluid yesterday. I reduced the dosage of amlodipine. The orthostasis has resolved. 3. Acute on chronic renal failure. We gave him a L of fluid yesterday. I will recheck a BMP today. 4. Type 2 insulin-dependent diabetes mellitus complicated by polyneuropathy. We will continue Lantus, Humulin sliding scale, pattern sugars, and an 1800 calorie ADA diet. cc: Av Mccall MD
[2019-11-13 08:36] LABS: BASO# 0.02 X1000 (0.0-0.2); BASO% 0.3 % (0.0-0.8); EOS# 0.05 X1000 (0.0-0.7); EOS% 0.7 % (0.0-10.0); HEMATOCRIT 27.3 % (42.0-52.0); HEMOGLOBIN 8.5 g/dL (14.0-18.0); IMM GRAN# 0.03 X1000 (0.0-0.04); IMM GRAN% 0.4 % (0.0-0.5); LYMPH# 1.36 X1000 (1.2-3.4); LYMPH% 19.7 % (20.5-51.1); MCH 30.5 PG (27-31); MCHC 31.1 g/dL (33-37); MCV 97.8 FL (81-99); MONO# 0.61 X1000 (0.11-0.59); MONO% 8.8 % (1.7-9.3); MPV 9.7 FL (7.4-10.4); NEUT# 4.85 X1000 (1.4-6.5); NEUT% 70.1 % (42.2-75.2); PLT 227 X1000 (130-400); RBC 2.79 XMIL (4.7-6.1); RDW 17.4 % (11.5-14.5); WBC 6.92 X1000 (4.8-10.8)
[2019-11-13 08:48] LABS: CALCIUM 9.1 mg/dL (8.8-10.2); CREATININE 1.2 mg/dL (0.7-1.2); POTASSIUM 4.7 mmol/L (3.5-5.1)
[2019-11-13] MEDS: CELEXA PO SCH (09:10)
[2019-11-13] MEDS: ALLEGRA PO SCH (09:10)
[2019-11-13] MEDS: HUMALOG SUBQ SCH ×3 (09:10→17:05)
[2019-11-13] MEDS: SINGULAIR PO SCH (09:10)
[2019-11-13] MEDS: XANAX PO SCH ×2 (09:10→22:15)
[2019-11-13] MEDS: SOLU-MEDROL IV SCH ×3 (11:22→23:45)
[2019-11-13] MEDS: SYMBICORT 160/4.5 MICROGM INHALER INH SCH ×2 (11:29→22:10)
[2019-11-13] MEDS: TYLENOL PO PRN (18:30)
[2019-11-13] MEDS: LIPITOR PO SCH (22:15)
[2019-11-13] MEDS: LANTUS INSULIN SUBQ SCH (22:15)
[2019-11-13] MEDS: FLOMAX PO SCH (22:15)
[2019-11-13] MEDS: LEVAQUIN 250 MG in NS 50 ML IV SCH (22:15)
[2019-11-14] MEDS: ROCEPHIN 1 GM in NS 50 ML IV SCH (01:50)
[2019-11-14] MEDS: DUONEB (A & A) INH SCH ×4 (03:10→22:57)
[2019-11-14] MEDS: HUMALOG SUBQ SCH ×4 (06:46→16:41)
[2019-11-14] MEDS: SYMBICORT 160/4.5 MICROGM INHALER INH SCH ×2 (09:29→20:26)
[2019-11-14] MEDS: SOLU-MEDROL IV SCH ×2 (09:39→20:55)
[2019-11-14] MEDS: SINGULAIR PO SCH (09:39)
[2019-11-14] MEDS: CELEXA PO SCH (09:39)
[2019-11-14] MEDS: ALLEGRA PO SCH (09:39)
[2019-11-14] MEDS: XANAX PO SCH ×2 (09:40→20:55)
--- NOTE | 2019-11-14 12:34 | Diag Imaging Result Doc PS360 ---
EXAM: CHEST-2 VIEWS 11/14/2019 HISTORY: COPD EXACERBATION TECHNIQUE: PA and lateral chest COMMENT: Considering differences in technique there has been no appreciable change since 11/12/2019. There is still partial opacification of the lingula and left lower lobe. The appearance of the chest has not changed appreciably since the previous examination of 07/20/2017. IMPRESSION: Stable chest. Electronically signed by Fabricio Trejo 11/14/2019 12:32 PM
--- NOTE | 2019-11-14 14:43 | PROGRESS NOTE ---
DATE: 11/14/2019 SUBJECTIVE: Mr. Martell was admitted to [facility] with an acute chronic obstructive pulmonary disease exacerbation complicated by tracheobronchitis. His repeat chest x-ray today demonstrated no evidence of infiltrates or pneumonia. He is breathing comfortably. He is maintaining O2 saturations of 95% to 97% on room air. He still has some wheezing on exam. He has a history of type 2 insulin-dependent diabetes mellitus. His blood sugars are fluctuating. Sugars are ranging from 219 to 500. I suspect the hyperglycemia is a result of IV steroids. OBJECTIVE: He is alert and easily arousable. He answers questions appropriately. Temperature 97.6 degrees, pulse 91, respirations 18, BP 116/52. CV: Regular rate and rhythm. Lungs: Occasional end-expiratory wheezing with forced expiration. Abdomen: Soft nontender with active bowel sounds. No hepatosplenomegaly. No abdominal bruits. Extremities without edema. ASSESSMENT AND PLAN: 1. Acute chronic obstructive pulmonary disease exacerbation complicated by tracheobronchitis. We will continue broad-spectrum antibiotics including levofloxacin and vancomycin pending sputum and blood cultures. One blood culture was positive for coagulase-negative staph, which is most likely a contaminant. We will titrate downward on the steroids to 20 mg q. 12 hours. 2. Type 2 insulin-dependent diabetes mellitus. Blood sugars are labile. I will increase the Lantus to 65 units daily and increase the Humalog to 30 units subcutaneous t.i.d. with meals. We will continue pattern sugars and a Humulin R sliding scale. 3. Acute on chronic renal failure. His creatinine has improved significantly with fluid resuscitation. His creatinine has dropped to 1.2. cc: Av Mccall MD
[2019-11-14] MEDS: LIPITOR PO SCH (20:55)
[2019-11-14] MEDS: LEVAQUIN 250 MG in NS 50 ML IV SCH (20:55)
[2019-11-14] MEDS: FLOMAX PO SCH (20:56)
[2019-11-14] MEDS: LANTUS INSULIN SUBQ SCH (20:56)
[2019-11-15] MEDS: ROCEPHIN 1 GM in NS 50 ML IV SCH (02:23)
[2019-11-15] MEDS: DUONEB (A & A) INH SCH ×4 (03:39→21:45)
[2019-11-15] MEDS: SYMBICORT 160/4.5 MICROGM INHALER INH SCH ×2 (08:07→21:45)
[2019-11-15] MEDS: XANAX PO SCH ×2 (08:27→21:54)
[2019-11-15] MEDS: SINGULAIR PO SCH (08:27)
[2019-11-15] MEDS: HUMALOG SUBQ SCH ×3 (08:27→18:03)
[2019-11-15] MEDS: ALLEGRA PO SCH (08:27)
[2019-11-15] MEDS: CELEXA PO SCH (08:27)
--- NOTE | 2019-11-15 09:51 | PROGRESS NOTE ---
DATE: 11/15/2019 SUBJECTIVE: Mr. Martell continues to improve clinically. He is breathing comfortably. He still has periodic episodes of a nonproductive cough. He is maintaining O2 saturations of 96% to 97% on room air. Blood sugars are trending down on lower doses of steroids and increased dosage of insulin. Blood sugars are ranging from 215 to 360. He has polyuria and polydipsia. OBJECTIVE: Vital Signs: Temperature 98.2 degrees, pulse 88, respirations 20, blood pressure 145/48. Cardiovascular: Regular rate and rhythm. Lungs: Clear. Abdomen: Soft and nontender with active bowel sounds. No hepatosplenomegaly. No abdominal bruits. ASSESSMENT AND PLAN: 1. Acute chronic obstructive pulmonary disease exacerbation. Clinically, he continues to improve. We will continue his regular home medications including Symbicort, DuoNeb nebulizer treatments, and intravenous Levaquin. I am going to stop the steroids. Repeat chest x-ray showed no pneumonia. We will increase his activity. 2. Type 2 insulin dependent diabetes mellitus complicated by polyneuropathy. I have stopped the steroids. We will continue Lantus 65 units subcutaneously daily and Humalog 30 units 3 times daily with meals. We will continue pattern sugars and a Humulin R sliding scale. cc: Av Mccall MD
[2019-11-15] MEDS ORDERED: SALINE LOCK IV FLUID XX ONE (12:56)
[2019-11-15] MEDS: LIPITOR PO SCH (21:54)
[2019-11-15] MEDS: LEVAQUIN 250 MG in NS 50 ML IV SCH (21:54)
[2019-11-15] MEDS: FLOMAX PO SCH (21:54)
[2019-11-15] MEDS: LANTUS INSULIN SUBQ SCH (21:55)
[2019-11-16] MEDS: DUONEB (A & A) INH SCH ×2 (03:50→10:32)
[2019-11-16] MEDS: ROCEPHIN 1 GM in NS 50 ML IV SCH (05:01)
[2019-11-16] MEDS: HUMALOG SUBQ SCH ×2 (08:43→11:33)
[2019-11-16] MEDS: XANAX PO SCH (08:44)
[2019-11-16] MEDS: CELEXA PO SCH (08:44)
[2019-11-16] MEDS: ALLEGRA PO SCH (08:44)
[2019-11-16] MEDS: SINGULAIR PO SCH (08:44)
[2019-11-16] MEDS: SYMBICORT 160/4.5 MICROGM INHALER INH SCH (11:34)
[2019-11-16 13:58] VITALS: BP 115/56
--- NOTE | 2019-11-16 18:03 | DISCHARGE SUMMARY ---
ADMISSION DATE: 11/12/2019 DISCHARGE DATE: 11/16/2019 DISCHARGE DIAGNOSES: 1. Chronic obstructive pulmonary disease with exacerbation. 2. Metabolic encephalopathy. 3. Type 1 diabetes with hyperglycemia. 4. Hypoglycemic episode. 5. Essential hypertension. HOSPITAL COURSE: The patient was admitted on the 3rd after hours. His extensive medical history including ischemic heart disease, congestive failure secondary to systolic dysfunction, hypertension, initially type 2 diabetes which now requires insulin with polyneuropathy and hyperglycemia. The patient was admitted with acute shortness of breath, hyperglycemia. He was admitted after hours by the hospitalist team. The patient was admitted to the floor, started on steroids and aerosol treatments as well as antibiotics which he seemed to tolerate well. Unfortunately, the steroids as predicted made his blood sugar go crazy, he was running blood sugars in the 300s and 400s until he could get tapered off of the steroids. The patient states that even at baseline he has some wheezing and shortness of breath with exertion so his exercise capacity is limited. The patient stated that he was at baseline respiratory function at the time of my examination on the day of discharge. The patient and his and I had a long discussion about glycemic control. He stated that he had been having frequent hypoglycemic episodes in the middle of night anywhere from 2 to 4 a.m. and this has been very frequent. His blood sugar is poorly controlled. He is on rather massive doses of insulin. We discussed appropriate foods to be eating diet and exercises adjunct to getting glycemic control. On the day of discharge he had a hypoglycemic episode after being off steroids and being back on his regular insulin doses. We discussed the plan going forward as he was fairly adamant about wanting to go home and his was comfortable with that as well. We are going to send him home on 65 units of Lantus and he will continue his 25 to 30 units of standing Humalog dose in the morning and at lunchtime. In the evenings I have asked him to cut down his standing dose of Humalog to 15 units in addition to whatever his sliding scale would dictate. He is advised to follow up with Dr. Mccall within 2 weeks for transition of care appointment. No other home medications have changed. cc: MD Av Flores MD
== END 2019-11-16 14:45 | disposition home or self-care (01) | DRG 190 ==
LOC: SUPCPDRO → ED 01:32 → EDIPHOLD 05:43 → SUATTDRO 05:43 → EDIPHOLD 09:06 → 3N 11:39
PROVIDERS: ADMIT Internal Medicine; ATTEND Internal Medicine